=== PATIENT | female | born 1950 | race Caucasian/White ===

== ENCOUNTER 2023-09-22 07:54 | Inpatient (IN) | payer MEDICARE, OTHER ==
[2023-09-22] VITALS (9 sets, daily range): BP systolic 112–152; BP diastolic 67–90; TEMP 97.1–98.7; O2SAT 96–99
[~2023-09-22] VITALS: Ht 157.5 cm; Wt 63.5 kg
[~2023-09-22 07:54] MED LIST: AMOX1TAB16 PO; ATOR20TA PO; BENA40TA8 PO; GLIM4TAB37 PO; LIDOCAINE 2%-EPI 1:100,000 30 ML VIAL ONE; METF-442 PO; METO50TA16 PO; TAMO20TA4 PO; VANCOMYCIN 1 GM VIAL ONE; dexaMETHasone SOD PHOSPHATE 2 ML ONE
[2023-09-22] MEDS ORDERED: LINA5TAB PO (08:59)
[2023-09-22] MEDS ORDERED: CYCL10TA9 PO (08:59)
[2023-09-22] MEDS ORDERED: HYDR25TA4 PO (08:59)
[2023-09-22] MEDS ORDERED: CALC-11 PO (08:59)
[2023-09-22] MEDS ORDERED: ACETAMINOPHEN 325 MG TABLET PO PRN (11:30)
[2023-09-22] MEDS ORDERED: ONDANSETRON HCL/PF 4 MG/2 ML VIAL IV PRN (11:30)
[2023-09-22] MEDS ORDERED: HYDROMORPHONE 1 MG/1 ML DISP.SYRIN IV PRN (11:30)
[2023-09-22] MEDS: IV NS 0.9% 1,000 ML IV PRN (11:33)
[2023-09-22] MEDS ORDERED: DEXTROSE 50%-WATER 50 ML DISP.SYRIN IV PRN (17:30)
[2023-09-22] MEDS ORDERED: HYDROCHLOROTHIAZIDE 25 MG TABLET PO PRN (17:30)
[2023-09-22] MEDS: BLOOD SUGAR DIAGNOSTIC 1 EACH STRIP VI SCH (17:54)
[2023-09-22] MEDS: METOPROLOL TARTRATE 50 MG TABLET PO SCH (18:04)
[2023-09-22] MEDS: INSULIN REGULAR, HUMAN 100 UNIT/ML 3 ML VIAL SQ PRN (19:02)
[2023-09-22] MEDS: VANCOMYCIN 1 GM in IV D5W 250ml IV SCH (20:16)
[2023-09-22] MEDS: CYCLOBENZAPRINE 10 MG TABLET PO SCH (22:16)
[2023-09-22] MEDS: *INSULIN REGULAR(HUMULIN R)HUM 100 UNIT/ML VIAL SQ PRN (22:19)
[2023-09-23 08:00] VITALS: BP 118/53; TEMP 98.1; TEMP 99.6; O2SAT 97
[2023-09-23] MEDS: TAMOXIFEN CITRATE 10 MG TABLET PO SCH (09:43)
[2023-09-23 09:45] VITALS: BP 118/55
[2023-09-23] MEDS: BENAZEPRIL HCL 20 MG TABLET PO SCH (09:45)
== END 2023-09-23 14:00 | disposition home or self-care (01) | DRG 496 ==
LOC: DS 07:54 → MED 07:56
PROVIDERS: ADMIT Internal Medicine; ATTEND Internal Medicine
PROC: 0NPW04Z Removal of Internal Fixation Device from Facial Bone, Open Approach (ICD-10-PCS; principal; 2023-09-22)
PROC: 0NBV0ZX Excision of Left Mandible, Open Approach, Diagnostic (ICD-10-PCS; 2023-09-22)
PROC: 09BR0ZZ Excision of Left Maxillary Sinus, Open Approach (ICD-10-PCS; 2023-09-22)
PROC: 0NBT0ZX Excision of Right Mandible, Open Approach, Diagnostic (ICD-10-PCS; 2023-09-22)
PROC: 0WB30ZX Excision of Oral Cavity and Throat, Open Approach, Diagnostic (ICD-10-PCS; 2023-09-22)
DX: T84.69XA Infection and inflammatory reaction due to internal fixation device of other site, initial encounter (principal); T81.83XA Persistent postprocedural fistula, initial encounter; Y83.8 Other surgical procedures as the cause of abnormal reaction of the patient, or of later complication, without mention of misadventure at the time of the procedure; I10 Essential (primary) hypertension; I25.10 Atherosclerotic heart disease of native coronary artery without angina pectoris; K12.30 Oral mucositis (ulcerative), unspecified; M89.38 Hypertrophy of bone, other site; J32.0 Chronic maxillary sinusitis; D16.4 Benign neoplasm of bones of skull and face; E11.9 Type 2 diabetes mellitus without complications; Y72.3 Surgical instruments, materials and otorhinolaryngological devices (including sutures) associated with adverse incidents; Y92.009 Unspecified place in unspecified non-institutional (private) residence as the place of occurrence of the external cause
CPT/HCPCS: 82962-TC; 88305-TC; 88311-TC; A4223; G0378; J0461; J0690; J1100; J1815; J2704; J3370; J3490; J7030; J7060